=== PATIENT | female | born 1965 | race Caucasian/White ===

== ENCOUNTER 2019-01-28 16:18 | Emergency (ER) | payer BC, OTHER ==
[2019-01-28 17:16] VITALS: BP 123/64
--- NOTE | 2019-01-28 18:18 | UC ---
Eye Complaint HPI - HPI Summary HPI Summary: 53 yo with a 4 week history of progressive eye itching and redness thought to be secondary to allergies. This has not responded to loratidine use or to a topical allergy eye drop. Skin of face is dry, recently started using cetaphil which gives some relief of symptoms. Works in a huey environment at the [employer]. - History of Current Complaint Chief Complaint: UCGeneralIllness Stated Complaint: BILATERAL EYE COMPLAINT Time Seen by Provider: 01/28/19 18:07 Hx Obtained From: Patient Hx Last Menstrual Period: 08/10/15 Onset/Duration: Gradual Onset, Lasting Weeks Timing: Constant Severity Initially: Mild Severity Currently: Moderate Pain Intensity: 0 Location of Injury: Conjunctiva, Eye Lid (lower), Eye Lid (upper), Periorbital Aggravating Factor(s): Nothing Alleviating Factor(s): Eye Drops Associated Signs And Symptoms: Negative: Photophobia, Drainage (Clear), Drainage (Purulent), Vision Impairment Right, Vision Impairment Left - Risk Factors Penetrating Injury Risk Factor: Negative Globe Rupture Risk Factors: Negative Acute Glaucoma Risk Factors: Negative Optic Artery Occlusion Risk Factors: Negative - Allergies/Home Medications Allergies/Adverse Reactions: Allergies Allergy/AdvReac Type Severity Reaction Status Date / Time No Known Allergies Allergy Verified 01/28/19 17:10 Home Medications: Home Medications Loratadine [Claritin] 1 tab PO DAILY 01/28/19 [History Confirmed 01/28/19] PMH/Surg Hx/FS Hx/Imm Hx Previously Healthy: Yes Other History Of: Negative For: HIV, Hepatitis B, Hepatitis C - Surgical History Surgical History: Yes Surgery Procedure, Year, and Place: C-SECT - Family History Known Family History: Positive: Diabetes - Social History Occupation: Employed Full-time Alcohol Use: Weekly Substance Use Type: None Smoking Status (MU): Never Smoked Tobacco - Immunization History Most Recent Influenza Vaccination: has not had Review of Systems All Other Systems Reviewed And Are Negative: Yes Constitutional: Positive: Negative Skin: Positive: Negative Eyes: Positive: Eye Redness ENT: Positive: Negative Respiratory: Positive: Negative Cardiovascular: Positive: Negative Gastrointestinal: Positive: Negative Genitourinary: Positive: Negative Motor: Positive: Negative Neurovascular: Positive: Negative Musculoskeletal: Positive: Negative Neurological: Positive: Negative Psychological: Positive: Negative Physical Exam Triage Information Reviewed: Yes Appearance: Well-Appearing, No Pain Distress Vital Signs: Initial Vital Signs Temp 98.2 F 01/28/19 17:11 Pulse 76 01/28/19 17:11 Resp 16 01/28/19 17:11 BP 123/64 01/28/19 17:11 Pulse Ox 100 01/28/19 17:11 Eyes: Positive: Conjunctiva Inflamed - mild bilateral injection ENT: Positive: Pharynx normal, TMs normal Neck exam: Normal Neck: Positive: Supple, Nontender, No Lymphadenopathy Respiratory: Positive: Lungs clear, Normal breath sounds Cardiovascular: Positive: RRR, No Murmur Musculoskeletal Exam: Normal Neurological Exam: Normal Psychological Exam: Normal Skin Exam: Other - Mild bilateral lid swelling and erythema, with diffuse facial erythema and papules consistent with rosacea. Eye Complaint Course/Dx - Course Course Of Treatment: Discussed rosacea treatment, will refer to derm for termite control servicer management. - Differential Dx/Diagnosis Differential Diagnosis/HQI/PQRI: Conjunctivitis, Orbital Cellulitis, Other - ocular rosacea Provider Diagnosis: Rosacea Discharge ED - Sign-Out/Discharge Documenting (check all that apply): Patient Departure All imaging exams completed and their final reports reviewed: No Studies - Discharge Plan Condition: Good Disposition: HOME Patient Education Materials: Rosacea (ED) Referrals: No Primary Care MOOK An [Primary Care Provider] - Leticia Staples [Medical Doctor] - Additional Instructions: You have a referral to dermatology for management of rosacea. Please call to arrange a visit. Early treatment approach includes discontinuation of use of present Zest soap on your face. Change to warm water cleanse with a mild soap without fragrance. Hot compress your eyes for 5 minutes daily. use 1% hydrocortisone around the eyelids, applying a thin layer twice daily. - Billing Disposition and Condition Condition: GOOD Disposition: Home
== END 2019-01-28 18:44 | disposition home or self-care (01) ==
LOC: UCCORT 16:18
DX: L71.9 Rosacea, unspecified (principal); H57.89 Other specified disorders of eye and adnexa
CPT/HCPCS: 99201; G0463